=== PATIENT | male | born 1935 | race Caucasian/White ===

== ENCOUNTER 2018-10-12 16:32 | Emergency (ER) | payer OTHER ==
[~2018-10-12] VITALS: Ht 175.3 cm; Wt 72.6 kg
[2018-10-12 17:12] LABS: Basophils # (auto) 0 uL; Basophils % (auto) 0.5 % (0.0-2.0); Eosinophils # (auto) 0.1 uL; Eosinophils % (auto) 1.4 % (0.0-7.0); Hematocrit 45.2 % (41.0-53.0); Hemoglobin 15.1 g/dL (13.5-17.5); Lymphocytes # (auto) 0.6 uL; Lymphocytes % (auto) 12.5 % (10.0-50.0); Mean Corpuscular Hemoglobin 31.4 pg (28.0-32.0); Mean Corpuscular Hgb Conc. 33.3 g/dL (32.0-36.0); Mean Corpuscular Volume 94.3 fL (80.0-100.0); Monocytes # (auto) 0.4 uL; Monocytes % (auto) 8.3 % (0.0-12.0); Neutrophils # (auto) 3.6 uL; Neutrophils % (auto) 77.3 % (37.0-80.0); Nucleated Red Blood Cells % 0.1 %; Platelet Count (auto) 186 10^3/uL (140-450); Red Blood Cells 4.79 10^6/uL (4.5-5.90); Red Cell Distribution Width 13.8 % (11.8-14.3); White Blood Cell 4.6 10^3/uL (4.4-10.8)
[2018-10-12 17:26] LABS: BUN/Creatinine Ratio 9.1; Calcium 9.2 mg/dL (8.5-10.1); Potassium 3.6 mmol/L (3.5-5.1)
[2018-10-12 17:28] LABS: Magnesium 2.1 mg/dL (1.6-2.6)
[2018-10-12 17:38] LABS: Urine Bacteria NONE SEEN /hpf (None Seen); Urine Blood Negative /uL (Negative); Urine Specific Gravity 1.008 (1.001-1.035); Urine WBC <1 /hpf (0 - 3)
[2018-10-12 17:42] LABS: Bilirubin, Total 0.6 mg/dL (0.2-1.0); Total Protein 7.5 g/dL (6.4-8.2)
[2018-10-12] MEDS ORDERED: HYDROcodone-ACET 5/325MG TAB PO ONE (17:45)
[2018-10-12] MEDS ORDERED: IOHEXOL 350 MG/ML 100ML IJ ONE (18:02)
[2018-10-12 19:19] LABS: INR 1.02 (0.9-1.15); Partial Thromboplastin Time 28.9 sec (23.78-33.04); Prothrombin Time 10.9 sec (9.27-12.13)
[2018-10-12] MEDS ORDERED: LORazepam 2MG/ML-1ML VIAL IV ONE (19:30)
[2018-10-13] MEDS ORDERED: ONDANSETRON HCL 4 MG/2 ML VIAL IV ONE (02:00)
[2018-10-13] MEDS ORDERED: cloNIDine HCL 0.1 MG TAB PO ONE ×2 (02:00→10:00)
[2018-10-13] MEDS ORDERED: LORazepam 2MG/ML-1ML VIAL IV ONE (04:15)
[2018-10-13] MEDS ORDERED: HEPARIN DRIP/D5W 100UNITS/ML 250 ML IV SCH ×2 (08:20→09:30)
[2018-10-13] MEDS ORDERED: HEPARIN SODIUM (PORCINE) 5000 UNITS/ML 1ML VIAL IV ONE ×2 (08:30→09:30)
[2018-10-13 09:50] VITALS: BP 187/100
== END 2018-10-13 10:17 | disposition short-term general hospital (02) ==
LOC: EDBD 16:32 → ER 16:32
DX: R07.89 Other chest pain (principal); I73.9 Peripheral vascular disease, unspecified; I10 Essential (primary) hypertension
CPT/HCPCS: 36415; 71045; 75635; 80053; 81001; 83735; 84484; 85025; 85379; 85610; 85730; 93005; 96365; 96375; 96376; 99285; J1644; J2060; J2405; Q9967